=== PATIENT | female | born 1980 | race Caucasian/White ===

== ENCOUNTER 2020-02-28 16:09 | Emergency (ER) | payer MEDICAID, SELFPAY ==
[2020-02-28] VITALS (7 sets, daily range): BP systolic 126–172; BP diastolic 9–100; PULSE 79–99; RESP 18–25; TEMP 36.7; O2SAT 94–97; BMI 58.4
--- NOTE | 2020-02-28 16:22 | XR_ITS ---
WS: [id number] XR chest 1V portable [id number] REASON FOR EXAM: dyspnea/cough FINDINGS: Comparisons were made to a previous exam of July 12, 2019. Today's exam shows normal heart size. The peripheral lungs are well aerated. No pneumonia, pleural effusion, pulmonary edema, or mass effec t. The lung harrell are mildly hypoaerated. The hilum and apices are normal. XR/XR chest 1V portable [id number] IMPRESSION: Negative chest for active pathology.
--- NOTE | 2020-02-28 16:22 | ECG_ITS ---
Measurements Intervals [place] Rate: 92 P: 55 [place]: 177 QRS: 4 QRSD: 100 T: 26 QT: 342 QTc: 425 SINUS RHYTHM Compared to ECG 07/12/2019 08:54:57 No significant changes Electronically Signed On 02-28-2020 20:57:21 CDT by Abhinav Knott M.D. [id number]
--- NOTE | 2020-02-28 16:46 | W.ED.CHESTPA ---
Documented by User: Adria Fontenot DO 02/29/20 18:30 HPI - Chest Pain General: Chief Complaint: Chest Pain Stated Complaint: cp/sob Time Seen by Provider: 02/28/20 16:21 History of Present Illness: HPI narrative: 39-year-old female sick with a productive cough of the last 2 months. She been on 2 rounds antibiotics Levaquin with prednisone and Bactrim also prednisone she is never really got any better. Now she is having almost discontinuous chest pain at times with cough. She has no history of coronary artery disease she is morbidly obese she is concerned she may have a blood clot. MD complaint: chest pain Onset (ago): month(s) Timing of current episode: constant and increasing Prior episodes: Yes Onset: during rest and during exertion Pain location: substernal and left chest Pain radiation: none Severity: moderate Quality: tightness and aching Relieving factors: nothing Exacerbating factors: other (Coughing) Context: recent illness Associated symptoms: Reports dyspnea, leg edema and nausea; Deny fever(s) Treatment prior to arrival: none Review of Systems Const: Denies: fever(s), chills, body aches, change in appetite, fatigue or malaise ENMT: Denies: throat pain, ear or mastoid pain, nasal discharge or nasal congestion Card: Denies: chest pain, edema, dyspnea on exertion or orthopnea Resp: Reports: dyspnea GI: Reports: nausea : Denies: flank pain, difficulty voiding, dysuria, urinary frequency or urinary urgency Skin/Breast: Denies: rash or pruritus PFS ED PFSH: Social History Smoking and tobacco status: current every day smoker Physical Exam Const: COMMON NORMALS: no acute distress GENERAL APPEARANCE: cooperative and comfortable ORIENTATION/CONSCIOUSNESS: Yes awake, Yes oriented to person, Yes oriented to place and Yes oriented to time HENMT: COMMON NORMALS: normocephalic, atraumatic, hearing grossly normal bilaterally, external ears normal, EAC's normal, TM's normal bilaterally, Normal nasal mucous membranes and turbinates present, moist oral mucous membranes and oropharynx normal HEAD & SCALP: normocephalic and atraumatic NOSE: Normal nasal mucous membranes and turbinates present EXTERNAL EAR: Yes external ears normal EXTERNAL AUDITORY CANAL: EAC's normal TYMPANIC MEMBRANE: TM's normal bilaterally Eye: COMMON NORMALS: Equal, round and reactive pupils present, EOMs intact bilaterally, conjunctivae normal and no scleral icterus CONJUNCTIVA: Yes conjunctivae normal PUPIL: Yes Equal, round and reactive pupils present Neck/C-Spine: COMMON NORMALS: full ROM, no lymphadenopathy, supple and no JVD Lymph: LYMPHATIC: no lymphadenopathy noted and no lymphedema noted Resp: COMMON NORMALS: normal respiratory effort, No retractions, No use of accessory muscles and clear to auscultation bilaterally AUSCULTATION: clear to auscultation bilaterally Cardio: COMMON NORMALS: no JVD, regular rate, regular rhythm and No murmurs present (Cardio) RATE: regular rate RHYTHM: regular rhythm GI: COMMON NORMALS: Soft to palpation and No hepatosplenomegaly present AUSCULTATION: Yes normoactive bowel sounds PALPATION: Yes Soft to palpation, No Tenderness to palpation present (GI), No Guarding due to palpation present (GI) and Yes No hepatosplenomegaly present Extremity: COMMON NORMALS: normal to inspection, capillary refill normal, no clubbing, cyanosis or edema, no calf tenderness and no pedal edema Neuro: SENSORIUM/ORIENTATION: Yes oriented to person, Yes oriented to place and Yes oriented to time Skin: COMMON NORMALS: no rashes or lesions noted GENERAL SKIN EXAM: no rashes or lesions noted Course Vital Signs: Vital signs: Vital Signs Temperature 98.1 F 02/28/20 16:16 Pulse Rate 99 02/28/20 19:48 Respiratory Rate 18 02/28/20 19:48 Blood Pressure 157/99 02/28/20 19:48 Pulse Oximetry 97 02/28/20 19:48 MDM - Chest Pain MDM Narrative: Medical decision making narrative: Care turned over to Dr. Easton at change of shift see his notes for definitive diagnosis and disposition Lab Data: Labs: Lab Results 02/28/20 02/28/20 02/28/20 Range/Units 16:35 16:35 16:35 WBC 8.8 (4.0-10.0) 10^3/ uL RBC 4.30 (4.1-5.3) 10^6/u L Hgb 13.0 (11.5-15.3) g/dL Hct 40.4 (37.0-47.0) % MCV 94.0 (81-99) fL MCH 30.2 (28.0-34.0) pg MCHC 32.2 (30.0-36.0) g/dL RDW 13.4 (12.1-15.1) % Plt Count 236 (130-400) 10^3/c mm MPV 8.8 (7.4-10.4) fL Neut % (Auto) 66.7 % Lymph % (Auto) 24.2 % Dubois % (Auto) 5.3 % Eos % (Auto) 2.7 % Baso % (Auto) 0.6 % Neut # (Auto) 5.9 (1.8-7.7) 10^3/u L Lymph # (Auto) 2.1 (0.8-4.8) 10^3/u L Dubois # (Auto) 0.5 (0.2-0.9) 10^3/u L Eos # (Auto) 0.2 (0.0-0.8) 10^3/u L Baso # (Auto) 0.1 (0.0-0.1) 10^3/u L Nucleated RBC % (a uto) 0 % Nucleated RBCs # 0.0 /100WBC D-Dimer (0-0.59) ug/mIFE U Sodium 140 (136-145) mmol/L Potassium 4.0 (3.5-5.1) mmol/L Chloride 105 (98-107) mmol/L Carbon Dioxide 25 (22-29) mmol/L Anion Gap 14.0 (5-19) BUN 12 (6-20) mg/dL Creatinine 0.8 (0.5-0.9) mg/dL GFR Calculation 80.3 L (90-130) mL/min Glucose 126 H (65-115) mg/dL Calculated Osmolal ity 288 (285-295) mOsm/k g Calcium 10.7 H (8.5-10.5) mg/dL Total Bilirubin 0.3 (0.15-1.2) mg/dL AST 14 (0-32) U/L ALT 23 (0-33) U/L Alkaline Phosphata se 82 (35-105) IU/L Troponin T Baselin e 6 (0-10) ng/mL Troponin T 120 Min qagan tayagungin (0-10) ng/mL Delta Troponin T (0-10) ABS# Total Protein 7.3 (6.6-8.7) g/dL Albumin 3.9 (3.5-5.2) g/dL Globulin 3.4 (1.3-4.6) g/dL 02/28/20 02/28/20 Range/Units 16:35 18:40 WBC (4.0-10.0) 10^3/ uL RBC (4.1-5.3) 10^6/u L Hgb (11.5-15.3) g/dL Hct (37.0-47.0) % MCV (81-99) fL MCH (28.0-34.0) pg MCHC (30.0-36.0) g/dL RDW (12.1-15.1) % Plt Count (130-400) 10^3/c mm MPV (7.4-10.4) fL Neut % (Auto) % Lymph % (Auto) % Dubois % (Auto) % Eos % (Auto) % Baso % (Auto) % Neut # (Auto) (1.8-7.7) 10^3/u L Lymph # (Auto) (0.8-4.8) 10^3/u L Dubois # (Auto) (0.2-0.9) 10^3/u L Eos # (Auto) (0.0-0.8) 10^3/u L Baso # (Auto) (0.0-0.1) 10^3/u L Nucleated RBC % (a uto) % Nucleated RBCs # /100WBC D-Dimer 0.42 (0-0.59) ug/mIFE U Sodium (136-145) mmol/L Potassium (3.5-5.1) mmol/L Chloride (98-107) mmol/L Carbon Dioxide (22-29) mmol/L Anion Gap (5-19) BUN (6-20) mg/dL Creatinine (0.5-0.9) mg/dL GFR Calculation (90-130) mL/min Glucose (65-115) mg/dL Calculated Osmolal ity (285-295) mOsm/k g Calcium (8.5-10.5) mg/dL Total Bilirubin (0.15-1.2) mg/dL AST (0-32) U/L ALT (0-33) U/L Alkaline Phosphata se (35-105) IU/L Troponin T Baselin e (0-10) ng/mL Troponin T 120 Min qagan tayagungin 6.00 (0-10) ng/mL Delta Troponin T 0 (0-10) ABS# Total Protein (6.6-8.7) g/dL Albumin (3.5-5.2) g/dL Globulin (1.3-4.6) g/dL Discharge Plan Discharge Patient Disposition: Home, Self-Care Clinical Impression: Bronchitis Condition: Stable Prescriptions: New doxycycline hyclate 100 mg capsule 100 mg PO BID 10 Days Qty: 20 RF: 0 Zofran 4 mg tablet 4 mg PO Q6H PRN (Reason: nausea and vomiting) Qty: 20 RF: 0 No Action Multiple Vitamins Tablet 1 tab PO DAILY RF: 0 carvedilol 25 mg tablet 12.5 mg PO BID RF: 0 ipratropium-albuterol 0.5 mg-3 mg(2.5 mg base)/3 mL solution for nebulization 3 ml INHALATION Q6H PRN (Reason: Shortness Of Breath) RF: 0 oxybutynin chloride 10 mg tablet extended release 24hr 10 mg PO DAILY RF: 0 methylphenidate HCl 20 mg tablet 20 mg PO BID RF: 0 sertraline 100 mg tablet 150 mg PO DAILY RF: 0 naproxen 250 mg Tablet 500 mg PO PRN RF: 0 Tylenol Extra Strength 500 mg Tablet 1,000 mg PO PRN RF: 0 spironolactone 25 mg tablet 25 mg PO DAILY RF: 0 levothyroxine 25 mcg tablet 25 mcg PO DAILY RF: 0 Advil 200 mg Tablet 800 mg PO PRN RF: 0 gabapentin 300 mg capsule 600 mg PO TID PRN (Reason: unknown) RF: 0 Chantix 1 mg tablet 1 mg PO BID RF: 0 Combivent Respimat 20-100 mcg/actuation mist 1 puff INHALATION Q6H PRN (Reason: Shortness Of Breath) RF: 0 Spiriva Respimat 1 puff inhalation BID RF: 0 Symbicort 1 puff inhalation BID RF: 0 Discharge Orders: Discharge Order (Routine); Ordered 02/28/20 Ordered By: Lauren Marcano Referrals: Jose Pugh MD [Physician] - 4-7 days Discharge Diet: Advance as tolerated Discharge Activity: Increase activity as tolerated Patient Instructions: Acute Bronchitis (ED) Activity Restrictions/Additional Instructions: Please return to the ER immediately for any of the signs or symptoms listed on your discharge instruction sheets, worsening/changing of your symptoms, you are not getting better as quickly as expected, or for ANY other cause or concerns. Please return to the ER immediately for any worsening of your symptoms or for any other cause for concern. Discharge Date/Time: 02/28/20 19:50 Sign Out Sign Out Data: Patient Sign Out occurred on 02/28/20 at 18:43. Patient's care was discussed, and care was transferred from to Lauren Marcano. Coding Level of Care Code ED Energy And Conservation Technician for Chg Fwd Exam Comprehensive Documented by User: Lauren Marcano 02/28/20 19:26 HPI - Chest Pain General: Chief Complaint: Chest Pain Stated Complaint: cp/sob Time Seen by Provider: 02/28/20 16:21 PFSH ED PFSH: Social History Smoking and tobacco status: current every day smoker Course Vital Signs: Vital signs: Vital Signs Temperature 98.1 F 02/28/20 16:16 Pulse Rate 99 02/28/20 19:48 Respiratory Rate 18 02/28/20 19:48 Blood Pressure 157/99 02/28/20 19:48 Pulse Oximetry 97 02/28/20 19:48 MDM - Chest Pain MDM Narrative: Medical decision making narrative: Case inherited by me at change of shift from Dr. Fontenot. Please see his history, physical exam and medical decision-making notes. Patient affirms to me that she has had chest pain only after a cough that has been prolonged. The cough is at times productive but at times not. She has no objectively measured fevers. Her pain is when she takes a deep breath or coughs only. She has no pain at rest or with exertion. Patient has tried Bactrim and Levaquin without improvement in her cough. She thinks this is related to her cough and not her heart. There is no sign of congestive heart failure, DVT/PE, aortic dissection or acute coronary syndrome with her work-up today. Her heart score is 2. She would prefer to go home and follow-up with the doctor as an outpatient but wants something for her cough in the interim. I will place her on doxycycline which I think will help her tremendously. She agrees to return should her symptoms change or worsen. Lab Data: Attestation: I reviewed the patient's lab results. Labs: Lab Results 02/28/20 02/28/20 02/28/20 Range/Units 16:35 16:35 16:35 WBC 8.8 (4.0-10.0) 10^3/ uL RBC 4.30 (4.1-5.3) 10^6/u L Hgb 13.0 (11.5-15.3) g/dL Hct 40.4 (37.0-47.0) % MCV 94.0 (81-99) fL MCH 30.2 (28.0-34.0) pg MCHC 32.2 (30.0-36.0) g/dL RDW 13.4 (12.1-15.1) % Plt Count 236 (130-400) 10^3/c mm MPV 8.8 (7.4-10.4) fL Neut % (Auto) 66.7 % Lymph % (Auto) 24.2 % Dubois % (Auto) 5.3 % Eos % (Auto) 2.7 % Baso % (Auto) 0.6 % Neut # (Auto) 5.9 (1.8-7.7) 10^3/u L Lymph # (Auto) 2.1 (0.8-4.8) 10^3/u L Dubois # (Auto) 0.5 (0.2-0.9) 10^3/u L Eos # (Auto) 0.2 (0.0-0.8) 10^3/u L Baso # (Auto) 0.1 (0.0-0.1) 10^3/u L Nucleated RBC % (a uto) 0 % Nucleated RBCs # 0.0 /100WBC D-Dimer (0-0.59) ug/mIFE U Sodium 140 (136-145) mmol/L Potassium 4.0 (3.5-5.1) mmol/L Chloride 105 (98-107) mmol/L Carbon Dioxide 25 (22-29) mmol/L Anion Gap 14.0 (5-19) BUN 12 (6-20) mg/dL Creatinine 0.8 (0.5-0.9) mg/dL GFR Calculation 80.3 L (90-130) mL/min Glucose 126 H (65-115) mg/dL Calculated Osmolal ity 288 (285-295) mOsm/k g Calcium 10.7 H (8.5-10.5) mg/dL Total Bilirubin 0.3 (0.15-1.2) mg/dL AST 14 (0-32) U/L ALT 23 (0-33) U/L Alkaline Phosphata se 82 (35-105) IU/L Troponin T Baselin e 6 (0-10) ng/mL Troponin T 120 Min qagan tayagungin (0-10) ng/mL Delta Troponin T (0-10) ABS# Total Protein 7.3 (6.6-8.7) g/dL Albumin 3.9 (3.5-5.2) g/dL Globulin 3.4 (1.3-4.6) g/dL 02/28/20 02/28/20 Range/Units 16:35 18:40 WBC (4.0-10.0) 10^3/ uL RBC (4.1-5.3) 10^6/u L Hgb (11.5-15.3) g/dL Hct (37.0-47.0) % MCV (81-99) fL MCH (28.0-34.0) pg MCHC (30.0-36.0) g/dL RDW (12.1-15.1) % Plt Count (130-400) 10^3/c mm MPV (7.4-10.4) fL Neut % (Auto) % Lymph % (Auto) % Dubois % (Auto) % Eos % (Auto) % Baso % (Auto) % Neut # (Auto) (1.8-7.7) 10^3/u L Lymph # (Auto) (0.8-4.8) 10^3/u L Dubois # (Auto) (0.2-0.9) 10^3/u L Eos # (Auto) (0.0-0.8) 10^3/u L Baso # (Auto) (0.0-0.1) 10^3/u L Nucleated RBC % (a uto) % Nucleated RBCs # /100WBC D-Dimer 0.42 (0-0.59) ug/mIFE U Sodium (136-145) mmol/L Potassium (3.5-5.1) mmol/L Chloride (98-107) mmol/L Carbon Dioxide (22-29) mmol/L Anion Gap (5-19) BUN (6-20) mg/dL Creatinine (0.5-0.9) mg/dL GFR Calculation (90-130) mL/min Glucose (65-115) mg/dL Calculated Osmolal ity (285-295) mOsm/k g Calcium (8.5-10.5) mg/dL Total Bilirubin (0.15-1.2) mg/dL AST (0-32) U/L ALT (0-33) U/L Alkaline Phosphata se (35-105) IU/L Troponin T Baselin e (0-10) ng/mL Troponin T 120 Min qagan tayagungin 6.00 (0-10) ng/mL Delta Troponin T 0 (0-10) ABS# Total Protein (6.6-8.7) g/dL Albumin (3.5-5.2) g/dL Globulin (1.3-4.6) g/dL Imaging Data^: CXR: Attestation: I personally reviewed and interpreted this imaging study as follows: My impression: No acute cardiopulmonary findings. EKG Data^: EKG 1: Attestation: I personally reviewed and interpreted this EKG as follows: EKG interpretation date: 02/28/20 EKG interpretation time: 16:24 Interpretation: Normal sinus rhythm at 92 beats a minute, no acute ST-T wave changes, no blocks, normal intervals. EKG 2: Attestation: I personally reviewed and interpreted this EKG as follows: EKG interpretation date: 02/28/20 EKG interpretation time: 18:35 Interpretation: Normal sinus rhythm at 70 beats a minute, first-degree AV block, no acute ST-T wave changes. Normal intervals. Discharge Plan Discharge Patient Disposition: Home, Self-Care Clinical Impression: Bronchitis Condition: Stable Prescriptions: New doxycycline hyclate 100 mg capsule 100 mg PO BID 10 Days Qty: 20 RF: 0 Zofran 4 mg tablet 4 mg PO Q6H PRN (Reason: nausea and vomiting) Qty: 20 RF: 0 No Action Multiple Vitamins Tablet 1 tab PO DAILY RF: 0 carvedilol 25 mg tablet 12.5 mg PO BID RF: 0 ipratropium-albuterol 0.5 mg-3 mg(2.5 mg base)/3 mL solution for nebulization 3 ml INHALATION Q6H PRN (Reason: Shortness Of Breath) RF: 0 oxybutynin chloride 10 mg tablet extended release 24hr 10 mg PO DAILY RF: 0 methylphenidate HCl 20 mg tablet 20 mg PO BID RF: 0 sertraline 100 mg tablet 150 mg PO DAILY RF: 0 naproxen 250 mg Tablet 500 mg PO PRN RF: 0 Tylenol Extra Strength 500 mg Tablet 1,000 mg PO PRN RF: 0 spironolactone 25 mg tablet 25 mg PO DAILY RF: 0 levothyroxine 25 mcg tablet 25 mcg PO DAILY RF: 0 Advil 200 mg Tablet 800 mg PO PRN RF: 0 gabapentin 300 mg capsule 600 mg PO TID PRN (Reason: unknown) RF: 0 Chantix 1 mg tablet 1 mg PO BID RF: 0 Combivent Respimat 20-100 mcg/actuation mist 1 puff INHALATION Q6H PRN (Reason: Shortness Of Breath) RF: 0 Spiriva Respimat 1 puff inhalation BID RF: 0 Symbicort 1 puff inhalation BID RF: 0 Discharge Orders: Discharge Order (Routine); Ordered 02/28/20 Ordered By: Lauren Marcano Referrals: Jose Pugh MD [Physician] - 4-7 days Discharge Diet: Advance as tolerated Discharge Activity: Increase activity as tolerated Patient Instructions: Acute Bronchitis (ED) Activity Restrictions/Additional Instructions: Please return to the ER immediately for any of the signs or symptoms listed on your discharge instruction sheets, worsening/changing of your symptoms, you are not getting better as quickly as expected, or for ANY other cause or concerns. Please return to the ER immediately for any worsening of your symptoms or for any other cause for concern. Discharge Date/Time: 02/28/20 19:50 Sign Out Sign Out Data: Patient Sign Out occurred on 02/28/20 at 18:43. Patient's care was discussed, and care was transferred from to Lauren Marcano. Coding Level of Care Code ED Energy And Conservation Technician for Salud Fwd Exam Comprehensive
[2020-02-28 16:49] LABS: Basophils # 0.1 10^3/uL (0.0-0.1); Basophils % 0.6 %; Eosinophils # 0.2 10^3/uL (0.0-0.8); Eosinophils % 2.7 %; Hematocrit 40.4 % (37.0-47.0); Lymphocytes # 2.1 10^3/uL (0.8-4.8); Lymphocytes % 24.2 %; Mean Corpuscular HGB Conc 32.2 g/dL (30.0-36.0); Mean Corpuscular Hemoglobin 30.2 pg (28.0-34.0); Mean Platelet Volume 8.8 fL (7.4-10.4); Monocytes # 0.5 10^3/uL (0.2-0.9); Monocytes % 5.3 %; Neutrophils # 5.9 10^3/uL (1.8-7.7); Neutrophils % 66.7 %; Nucleated Red Blood Cells % 0 %; Platelet Count 236 10^3/cmm (130-400); Red Cell Distribution Width 13.4 % (12.1-15.1); White Blood Count 8.8 10^3/uL (4.0-10.0)
[2020-02-28 17:03] LABS: D Dimer 0.42 ug/mIFEU (0-0.59)
[2020-02-28 17:12] LABS: Alanine Aminotransferase 23 U/L (0-33); Albumin Level 3.9 g/dL (3.5-5.2); Alkaline Phosphatase 82 IU/L (35-105); Aspartate Amino Transferase 14 U/L (0-32); Blood Urea Nitrogen 12 mg/dL (6-20); Calcium 10.7 mg/dL (8.5-10.5); Carbon Dioxide 25 mmol/L (22-29); Chloride 105 mmol/L (98-107); Creatinine Clr Calc Pharmacy 152.4174; Globulin 3.4 g/dL (1.3-4.6); Glomerular Filtration Rate 80.3 mL/min (90-130); Glucose 126 mg/dL (65-115); Osmolality Calculated 288 mOsm/kg (285-295); Sodium 140 mmol/L (136-145); Total Bilirubin 0.3 mg/dL (0.15-1.2); Total Protein 7.3 g/dL (6.6-8.7)
[2020-02-28 17:14] LABS: Troponin(5th) Baseline 6 ng/mL (0-10)
[2020-02-28] MEDS: sodium chloride 0.9% 1,000 ML 999 ML IV (18:40)
[2020-02-28 19:05] LABS: Troponin 5 2HR Delta 0 ABS# (0-10)
[2020-02-28] MEDS: ondansetron 2 mg/ML SDV 2 mL 4 MG IVP (19:07)
[2020-02-28] MEDS: morphine 4 mg/mL SDV 1 mL IVP (19:07)
[2020-02-28] MEDS: doxycycline 100 mg Tablet 200 MG PO (19:42)
--- NOTE | 2020-02-28 22:22 | ECG_ITS ---
Measurements Intervals [place] Rate: 70 P: [place]: 0 QRS: 48 QRSD: 105 T: 24 QT: 364 QTc: 395 Normal sinus rhythm with a first-degree AV block. LOW QRS VOLTAGE IN PRECORDIAL LEADS [QRS DEFLECTION < 1.0 mV IN CHEST LEADS] ABNORMAL RHYTHM ECG Compared to ECG 07/12/2019 08:54:57 Low QRS voltage now present Sinus rhythm no longer present Electronically Signed On 02-28-2020 21:03:10 CDT by Abhinav Knott M.D. [id number]
== END 2020-02-28 19:50 | disposition home or self-care (01) ==
PROVIDERS: Family Medicine; Emergency Provider Emergency Medicine
DX: J40 Bronchitis, not specified as acute or chronic (principal); F17.210 Nicotine dependence, cigarettes, uncomplicated
CPT/HCPCS: 12345; 36415; 71045; 80053; 84484; 85025; 85378; 93005; 96361; 96374; 96375; 99283; J2270; J2405; J2930; J7030

== ENCOUNTER → 2020-05-16 08:39 | Outpatient (BNVA) | payer MEDICAID, SELFPAY | PROVIDERS: Visit Provider Psychiatry & Neurology Psychiatry | DX: F43.10 Post-traumatic stress disorder, unspecified (principal); F32.9 Major depressive disorder, single episode, unspecified; F90.9 Attention-deficit hyperactivity disorder, unspecified type; G47.419 Narcolepsy without cataplexy | CPT/HCPCS: 90792 ==

== ENCOUNTER → 2020-06-17 08:18 | Outpatient (BNVA) | payer MEDICAID, SELFPAY | PROVIDERS: Visit Provider Psychiatry & Neurology Psychiatry | DX: F32.9 Major depressive disorder, single episode, unspecified (principal); F43.10 Post-traumatic stress disorder, unspecified; F90.9 Attention-deficit hyperactivity disorder, unspecified type; G47.419 Narcolepsy without cataplexy | CPT/HCPCS: 99213 ==

== ENCOUNTER → 2020-09-10 09:08 | Outpatient (BNVA) | payer MEDICAID, SELFPAY | PROVIDERS: Visit Provider Psychiatry & Neurology Psychiatry | DX: F43.10 Post-traumatic stress disorder, unspecified (principal); F32.9 Major depressive disorder, single episode, unspecified; G47.419 Narcolepsy without cataplexy; F90.9 Attention-deficit hyperactivity disorder, unspecified type; F41.1 Generalized anxiety disorder | CPT/HCPCS: 99214 ==

== ENCOUNTER → 2020-09-27 14:17 | Outpatient (BNVA) | payer MEDICAID, SELFPAY | PROVIDERS: Visit Provider Surgery | DX: Z01.812 Encounter for preprocedural laboratory examination (principal); Z20.828 Contact with and (suspected) exposure to other viral communicable diseases | CPT/HCPCS: 87635 ==

== ENCOUNTER 2020-10-02 08:17 | Day surgery (SDC) | payer MEDICAID, SELFPAY ==
[2020-09-30 13:21] VITALS: BMI 60.5
[2020-10-02 09:11] VITALS: BP 153/113; PULSE 85; RESP 20; TEMP 36.4; O2SAT 96
[2020-10-02 09:36] LABS: Glucose Point of Care 146 mg/dL (70-110)
[2020-10-02] MEDS: sodium chloride 0.9% 1,000 ML 30 ML IV (09:37)
[2020-10-02 09:39] VITALS: BP 164/99; PULSE 80; RESP 18; O2SAT 96
--- NOTE | 2020-10-02 09:44 | W.PM.OPSUD ---
Surgery/Procedure H&P Update DATE OF PROCEDURE: October 02, 2020 DATE H&P PERFORMED: 09/04/20 H&P UPDATE INFORMATION: I have reviewed H&P completed within last 30 days, I have examined patient prior to procedure and No changes to prior documentation PREOP DIAGNOSIS: Persistent acid reflux PRIMARY INDICATION FOR PROCEDURE: The same PLANNED PROCEDURE: Operation Date: 10/02/20 09:30 Proposed Procedures p EGD 75195 k21.9(Not Applicable) - Dano Prakash MD
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
[2020-10-02 10:28] VITALS: BP 145/111; PULSE 97; RESP 18; TEMP 36.6; O2SAT 94
--- NOTE | 2020-10-02 10:33 | ANE.PACU2 ---
Inpatient post-anesthesia follow up: Airway intact: Yes Vital signs: Temperature 97.5 F Pulse Rate 80 Respiratory Rate 18 Blood Pressure 164/99 Pulse Oximetry 96 Oxygen Delivery Me thod Room Air Oxygen Flow Rate Fraction of Inspir ed Oxygen Hydration adequate: Yes Nausea and vomiting: No Pain level: 1 Mental status: Baseline
[2020-10-02 10:43] VITALS: BP 115/78; PULSE 84; RESP 18; O2SAT 96
[2020-10-03 09:00] LABS: H. Pylori / CLO Test Positive
== END 2020-10-02 10:52 | disposition home or self-care (01) ==
PROVIDERS: PCP Family Medicine; Visit Provider Surgery
PROC: 0DJ08ZZ Inspection of Upper Intestinal Tract, Via Natural or Artificial Opening Endoscopic (ICD-10-PCS; CPT 43235; principal; 2020-10-02 09:30)
DX: K21.9 Gastro-esophageal reflux disease without esophagitis (principal); K29.70 Gastritis, unspecified, without bleeding; J44.9 Chronic obstructive pulmonary disease, unspecified; G47.30 Sleep apnea, unspecified; I10 Essential (primary) hypertension; E11.9 Type 2 diabetes mellitus without complications; E66.01 Morbid (severe) obesity due to excess calories; Z68.44 Body mass index [BMI] 60.0-69.9, adult; F17.210 Nicotine dependence, cigarettes, uncomplicated
CPT/HCPCS: 12345; 36416; 43239; 82962; 87077; J2704; J7030

== ENCOUNTER → 2021-04-30 09:20 | Outpatient (BNVA) | payer MEDICAID, SELFPAY | PROVIDERS: PCP Family Medicine; Referring Provider Psychiatry & Neurology Psychiatry; Visit Provider Psychiatry & Neurology Psychiatry | DX: F43.10 Post-traumatic stress disorder, unspecified (principal) | CPT/HCPCS: 80061; 83036 ==

== ENCOUNTER 2021-06-11 19:29 | Emergency (ER) | payer MEDICAID, SELFPAY ==
[2021-05-07 16:01] VITALS: BP 167/107; BMI 59.0
[2021-06-11 19:37] VITALS: BP 187/135; PULSE 90; RESP 20; TEMP 36.9; O2SAT 96; BMI 60.5
--- NOTE | 2021-06-11 20:24 | ECG_ITS ---
[facility] Test Date: 2021-06-11 Pat Name: Lisandra Salazar Department: Room: Gender: Female [employer]: : 1980 Requested By: Israel Chaudhari Order Number: [id number] Abhijit MD: Maxine Esparza M.D. Measurements Intervals [place] Rate: 85 P: 41 NC: 186 QRS: 0 QRSD: 89 T: 24 QT: 328 QTc: 390 Interpretive Statements SINUS RHYTHM LOW QRS VOLTAGE IN PRECORDIAL LEADS [QRS DEFLECTION < 1.0 mV IN CHEST LEADS] ANTEROSEPTAL MYOCARDIAL INFARCTION , PROBABLY OLD [40+ ms Q WAVE IN V1-V4] Compared to ECG 02/28/2020 18:35:22 Myocardial infarct finding now present Electronically Signed On 06-13-2021 18:58:51 CDT by Maxine Esparza M.D. [id number]
--- NOTE | 2021-06-11 20:24 | XRR_ITS ---
PROCEDURE INFORMATION: Exam: XR Chest Exam date and time: 06/11/2021 8:24 PM Age: 41 years old Clinical indication: Cough and shortness of breath; Additional info: SOB TECHNIQUE: Imaging protocol: XR of the chest. Views: 1 view. COMPARISON: CR XR chest 1V portable [id number] 02/28/2020 4:32 PM FINDINGS: Lungs: Unremarkable. No consolidation. Pleural spaces: Unremarkable. No pleural effusion. No pneumothorax. Heart/Mediastinum: Unremarkable. No cardiomegaly. Bones/joints: Unremarkable. XR/XR chest 1V portable [id number] IMPRESSION: No acute findings.
== END 2021-06-11 21:19 ==
PROVIDERS: Emergency Provider Family Medicine
DX: Z53.21 Procedure and treatment not carried out due to patient leaving prior to being seen by health care provider (principal)
CPT/HCPCS: 71045; 93005

== ENCOUNTER → 2022-05-13 13:31 | Outpatient (BNVA) | payer MEDICAID, SELFPAY ==
[2021-05-07 16:01] VITALS: BP 167/107; BMI 59.0
== END ==
PROVIDERS: Visit Provider Psychiatry & Neurology Neurology
DX: F33.2 Major depressive disorder, recurrent severe without psychotic features (principal); F90.2 Attention-deficit hyperactivity disorder, combined type; F90.9 Attention-deficit hyperactivity disorder, unspecified type
CPT/HCPCS: 80061; 83036

== ENCOUNTER → 2022-08-31 12:54 | Outpatient (BNVA) | payer MEDICAID, SELFPAY ==
[2022-05-18 11:53] VITALS: BMI 58.1
== END ==
PROVIDERS: Visit Provider Nurse Practitioner Family
DX: R68.89 Other general symptoms and signs (principal); J10.1 Influenza due to other identified influenza virus with other respiratory manifestations; H60.502 Unspecified acute noninfective otitis externa, left ear
CPT/HCPCS: 87400

== ENCOUNTER → 2022-12-27 11:58 | Outpatient (BNVA) | payer MEDICAID, SELFPAY ==
[2022-05-18 11:53] VITALS: BMI 58.1
== END ==
PROVIDERS: Visit Provider Nurse Practitioner Family
DX: Z20.822 Contact with and (suspected) exposure to COVID-19 (principal); B34.9 Viral infection, unspecified; H65.112 Acute and subacute allergic otitis media (mucoid) (sanguinous) (serous), left ear; I16.0 Hypertensive urgency; R06.2 Wheezing
CPT/HCPCS: 87426